=== PATIENT | male | born 1950 ===

== ENCOUNTER → 2023-05-02 10:53 | Outpatient (REF) | payer MEDICARE, OTHER, SELFPAY | LOC: RAD 10:53 | PROVIDERS: ATTENDING PHYSICIAN Surgery Vascular Surgery; FAMILY PHYSICIAN Family Medicine | DX: I65.23 Occlusion and stenosis of bilateral carotid arteries (principal) | CPT/HCPCS: 93880 ==

== ENCOUNTER → 2023-12-13 14:35 | Outpatient (REF) | payer MEDICARE, OTHER, SELFPAY | LOC: MRI 3T 14:35 | PROVIDERS: ATTENDING PHYSICIAN Specialist; FAMILY PHYSICIAN Family Medicine | DX: R97.20 Elevated prostate specific antigen [PSA] (principal) | CPT/HCPCS: 72197; A9575 ==

== ENCOUNTER → 2024-01-23 10:33 | Outpatient (REF) | payer MEDICARE, OTHER, SELFPAY | LOC: CLAB 10:33 | PROVIDERS: ATTENDING PHYSICIAN Specialist | DX: R97.20 Elevated prostate specific antigen [PSA] (principal) | CPT/HCPCS: 88305 ==

== ENCOUNTER 2024-02-09 14:07 | Emergency (ER) | payer MEDICARE, OTHER, SELFPAY ==
[2024-02-09 14:16] VITALS: BP 140/73
[2024-02-09 16:56] VITALS: BMI 24.1
[2024-02-09] MEDS: LET TOPICAL ANESTHETIC GEL 3 ML TOPICAL (16:59)
--- NOTE | 2024-02-09 17:50 | ED.GENMED ---
History of Present Illness
General
Chief Complaint: Head Injury
Source: patient
Exam Limitations: none
Time Seen by Provider: 02/09/24 16:26
Nursing documentation reviewed up to this point in time: agreed with
History of Present Illness
History of Present Illness:
73-year-old male presenting to the emergency department after tripping down 3 steps hitting his forehead did not lose consciousness is not on blood thinners. Denies any additional symptoms no extremity discomfort no chest pain or abdominal pain
Review of Systems
Review of Systems
Allergies reviewed?: Yes
All Other Systems: ROS reviewed and negative except as documented in HPI and ROS
Phy Exam
Physical Exam
Physical Exam:
GENERAL: Alert , in no apparent distress
EYE: pupils equal and reactive
NECK: Supple, no significant adenopathy.
ENT: Vertical laceration to the mid upper forehead roughly 2.5 cm superficial in depth o/p clr, mmm.
CARDIAC: Regular rate and rhythm .
LUNGS: Clear breath sounds bilaterally, no acute respiratory distress, no wheezes/rales/rhonchi
ABDOMEN: Soft, without focal tenderness, no r/g, no cvat
NEUROLOGICAL: Alert and oriented, no focal neuro deficits
SKIN: Warm and dry, skin intact.
MUSCULOSKELETAL: No edema, well perfused.
PSYCH: Normal and appropriate interaction.
Course
Orders/Labs/Results
Orders:
Orders
02/09/24 14:40
CT Cervical Spine W/o Iv Contr Urgent
Comment:
Reason For Exam: fall with headstrike
CT Head W/o Iv Contrast Urgent
Comment:
Reason For Exam: fall with headstrike
02/09/24 16:58
Lidocaine/Epinephrine/Tetracai [Let Topical Anesthetic Gel] 3 ml .ROUTE .STK-MED ONE
02/09/24 16:59
Lidocaine/Epinephrine/Tetracai [Let Topical Anesthetic Gel] 3 ml TOPICAL NOW STA
Vital Signs
Initial and Last Documented VS:
Initial Vital Signs
Temp Pulse Resp BP Pulse Ox
98.1 F 74 16 140/73 100
02/09/24 14:16 02/09/24 14:16 02/09/24 14:16 02/09/24 14:16 02/09/24 14:16
Last Documented Vital Signs
Temp Pulse Resp BP Pulse Ox
98.1 F 74 16 140/73 100
02/09/24 14:16 02/09/24 14:16 02/09/24 14:16 02/09/24 14:16 02/09/24 14:16
Procedures
Laceration Closure
Superior Forehead:
Status of Wound: clean
Size of Wound in cm: 2.5
Description of Wound Edges: other (Skin loss vertical)
Preparation: cleaned with saline
Anesthesia: Topical-LET
Type of Closure: Dermabond-skin glue
MDM/Problems Addressed
MDM/Problems Addressed:
73-year-old male presenting to the emergency department after mechanical fall down 3 steps hitting his forehead no additional injuries head CT and neck CT without emergent findings. Patient well-appearing no distress here. Patient does have a
laceration to the central forehead which was cleaned thoroughly and closed with Dermabond otherwise stable for discharge return precautions given. Also given a tetanus shot prior to discharge.
*Critical Care Note
Total Time (30-74mins, 75-104mins- exclusive of procedures): Not Applicable
ED Attending Note
-
Portions of this chart may have been created with voice recognition software.� Occasional wrong word or��sound alike� substitutions may have occurred due to the inherent limitations of voice recognition software.
Discharge Plan
Departure
Patient Disposition: Home (Routine Discharge)
Date of Disposition: 02/09/24
Time of Disposition: 17:53
Patient with high blood pressure during this ER visit?: No
Condition: Good
Discharge Problem:
Fall, Forehead laceration
Instructions: Laceration Repair With Glue (DC), Minor Head Injury (DC)
Prescriptions:
No Action
latanoprost 0.005 % Drops
1 drp OPHTHALMIC (EYE) HS
atorvastatin 40 mg Tablet
40 mg PO DAILY
levothyroxine 175 mcg Tablet
175 mcg PO DAILY
lisinopril-hydrochlorothiazide 20-12.5 mg Tablet
1 tab PO DAILY
cholecalciferol (vitamin D3) [Vitamin D3] 25 mcg (1,000 unit) Tablet
25 mcg PO DAILY
aspirin 81 mg Capsule
81 mg PO DAILY
oxycodone 5 mg tablet
5 - 10 mg PO Q4HPRN PRN (Reason: moderate to severe pain) Qty: 10 0RF
Referrals:
Tierra Farley MD [Family Provider] -
Activity Restrictions/Additional Instructions:
You came to the emergency department today after a fall. Here you had a normal head CT and neck CT. You also had Dermabond placed on a small laceration to your forehead. Please keep the area clean the Dermabond will fall off in the next 5 to 7
days. Return to the emergency department for any worsening, new or concerning symptoms.
Interventions
Interventions:
*Risk Screen - Suicide Last Done: 02/09/24 14:16
*General Assessment Last Done: 02/09/24 14:16
*Neglect/Abuse Screening Last Done: 02/09/24 16:55
ED- Fall Risk Assessment Last Done: 02/09/24 16:46
*ED COVID-19 Vaccine History Last Done: 02/09/24 14:16
ED- Neurological Assessment Last Done: 02/09/24 16:54
ED-Skin Assessment Last Done: 02/09/24 16:54
Discharge Date and Time
Print Language: URDU
[2024-02-09] MEDS: ADACEL 0.5 ML IM (17:56)
[2024-02-09 18:05] VITALS: BP 139/76
== END 2024-02-09 18:11 | disposition home or self-care (01) ==
LOC: EMR 14:07
PROVIDERS: EMERGENCY PHYSICIAN Emergency Medicine; FAMILY PHYSICIAN Family Medicine
DX: S01.81XA Laceration without foreign body of other part of head, initial encounter (principal); W10.9XXA Fall (on) (from) unspecified stairs and steps, initial encounter; Z23 Encounter for immunization
CPT/HCPCS: 99284; 12011; 90471; 70450; 72125; 90715

== ENCOUNTER → 2024-05-09 09:59 | Outpatient (REF) | payer MEDICARE, OTHER, SELFPAY | LOC: RAD 09:59 | PROVIDERS: ATTENDING PHYSICIAN Surgery Vascular Surgery; FAMILY PHYSICIAN Family Medicine | DX: I65.23 Occlusion and stenosis of bilateral carotid arteries (principal) | CPT/HCPCS: 93880 ==